=== PATIENT | male | born 1950 | race African-American/Black ===

== ENCOUNTER 2021-01-06 07:42 | Observation (INO) ==
[2021-01-06 08:39] LABS: Basophils % 0.8 % (0.0-0.8); Eosinophils # 0.2 10*3/uL (0.0-0.87); Eosinophils % 2.9 % (0.00-10.9); Hematocrit 39.6 VOL% (42.0-52.0); Hemoglobin 13.1 GM/DL (14.0-18.0); Immature Granulocytes % 0.2 %; Immature Granulocytes Absolute 0.01 #; Lymphocytes # 2.7 10*3/uL (1.4-4.0); Lymphocytes % 52.4 % (21.2-54.2); Mean Corpuscular HGB Conc 33.1 GM/DL (32-36); Mean Corpuscular Volume 89.6 FL (87-102); Mean Platelet Volume 11.3 FL (9.6-12.0); Monocytes % 9.4 % (1.7-12.7); Neutrophils % 34.3 % (38.7-73.9); Platelet Count 204 T/CUMM (130-400); Red Blood Count 4.42 MC/CUMM (3.8-5.5); Red Cell Distribution Width 12.6 % (9.3-17.3); White Blood Count 5.2 T/CUMM (4-12)
[2021-01-06 08:42] LABS: ABG Base Excess 3.9 MMOL/L (-2.5-2.5); ABG HCO3 27.8 MMOL/L (20-26); ABG Oxygen Saturation 96.8 % (95-100); ABG PCO2 35.4 MM HG (35-48); ABG PO2 80.3 MM HG (80-95); ABG TCO2 23.5 MMOL/L (23-27); Allen Test Positive; Pt O2 Delivery Device Room Air
[2021-01-06 08:46] LABS: Bilirubin,Urine Negative (Negative); Blood, Urine Negative (Negative); Glucose,Urine (UA) Negative (Negative); Ketones,Urine Negative (Negative); Nitrite,Urine Negative (Negative); Protein,Urine Negative; RBC,Urine <1 /HPF (0-4); Urine Appearance CLEAR (Clear); Urine Color Straw (Yellow); Urine Specific Gravity 1.008 (1.001-1.035); Urine Urobilinogen < 2.0 EU/DL (0.2-1.0)
[2021-01-06 09:04] LABS: Alanine Aminotransferase 12 U/L (16-61); Albumin 3.4 G/DL (3.4-5.0); Alkaline Phosphatase 72 U/L (45-117); Aspartate Amino Transferase 13 U/L (0-37); Bilirubin,Total < 0.39 MG/DL (0.20-1.00); Blood Urea Nitrogen 12 MG/DL (7-18); Carbon Dioxide 27 MMOL/L (21-32); Estimated Glom Filtration Rate 59 ML/MIN; Glucose 111 MG/DL (74-106); Osmolality,Calculated 288.7 MOS/KG (273-304); Potassium 3.4 MMOL/L (3.5-5.1); Sodium 145 MMOL/L (136-145); Total Protein 7.2 G/DL (6.4-8.2)
[2021-01-06 09:10] LABS: Eosinophils 4 % (0-10); Hypochromasia Slight; Lymphocytes 53 % (20-55); Microcytosis Slight; Platelet Estimate Adequate; Segmented Neutrophils 31 % (50-85); Total Cells Counted 100
[2021-01-06 09:12] LABS: Atypical Lymphocytes Few
[2021-01-06] MEDS ORDERED: ACETAMINOPHEN 325 MG TABLET PO PRN (10:23)
[2021-01-06] MEDS ORDERED: ALUMINUM/MAGNES/SIMETH MAX STR 30 ML UDCUP PO PRN (10:23)
[2021-01-06] MEDS ORDERED: hydrALAZINE 20 MG/1 ML VIAL IV PRN (10:23)
[2021-01-06] MEDS ORDERED: DEXTROSE 50% 25 GM/50 ML SYRINGE IV PRN (10:23)
[2021-01-06] MEDS ORDERED: GLUCAGON 1 MG VIAL IM PRN (10:23)
[2021-01-06] MEDS ORDERED: ONDANSETRON 4 MG/2 ML VIAL IV PRN (10:23)
[2021-01-06] MEDS ORDERED: DOCUSATE SODIUM 100 MG CAPSULE PO PRN (10:23)
[2021-01-06] MEDS ORDERED: hydrALAZINE 20 MG/1 ML VIAL IV STA (10:34)
[2021-01-06] MEDS ORDERED: POTASSIUM CHLORIDE 20 MEQ TABLET PO ONE (10:55)
[2021-01-06] MEDS: ENOXAPARIN 40 MG/0.4 ML SYRINGE SUBCUT SCH (10:57)
[2021-01-06 12:03] LABS: Thyroid Stimulating Hormone 4.71 uIU/ml (0.358-3.74)
[2021-01-06] MEDS: hydroCHLOROthiazide 25 MG TABLET PO SCH (17:16)
[2021-01-06] MEDS: amLODIPine 10 MG TABLET PO SCH (17:16)
[2021-01-07 05:12] LABS: Basophils % 0.7 % (0.0-0.8); Eosinophils # 0.1 10*3/uL (0.0-0.87); Eosinophils % 2.3 % (0.00-10.9); Hematocrit 38.7 VOL% (42.0-52.0); Hemoglobin 12.6 GM/DL (14.0-18.0); Immature Granulocytes % 0.4 %; Immature Granulocytes Absolute 0.02 #; Lymphocytes # 2.6 10*3/uL (1.4-4.0); Lymphocytes % 46.1 % (21.2-54.2); Mean Corpuscular HGB Conc 32.6 GM/DL (32-36); Mean Platelet Volume 11.4 FL (9.6-12.0); Neutrophils % 36.5 % (38.7-73.9); Platelet Count 203 T/CUMM (130-400); Red Cell Distribution Width 12.7 % (9.3-17.3); White Blood Count 5.7 T/CUMM (4-12)
[2021-01-07 05:35] LABS: Alanine Aminotransferase 10 U/L (16-61); Alkaline Phosphatase 61 U/L (45-117); Aspartate Amino Transferase 10 U/L (0-37); Bilirubin,Total < 0.39 MG/DL (0.20-1.00); Blood Urea Nitrogen 14 MG/DL (7-18); Calcium 8.8 MG/DL (8.5-10.1); Carbon Dioxide 25 MMOL/L (21-32); Estimated Glom Filtration Rate 74 ML/MIN; Glucose 91 MG/DL (74-106); HDL Cholesterol 28 MG/DL (40-60); Potassium 3.3 MMOL/L (3.5-5.1); Risk Ratio 5.89; Sodium 143 MMOL/L (136-145); Total Protein 6.5 G/DL (6.4-8.2); Triglycerides 102 MG/DL (2-150); VLDL Cholesterol 20.4 MG/DL
[2021-01-07 05:39] LABS: Eosinophils 1 % (0-10); Lymphocytes 53 % (20-55); Segmented Neutrophils 38 % (50-85); Total Cells Counted 100
[2021-01-07 05:40] LABS: Atypical Lymphocytes Moderate; Platelet Estimate Adequate
[2021-01-07] MEDS ORDERED: PANTOPRAZOLE 40 MG TABLET PO SCH (09:00)
[2021-01-07] MEDS: amLODIPine 10 MG TABLET PO SCH (09:18)
[2021-01-07] MEDS: hydroCHLOROthiazide 25 MG TABLET PO SCH (09:18)
[2021-01-07] MEDS ORDERED: POTASSIUM CHLORIDE 20 MEQ TABLET PO ONE (09:26)
[2021-01-07] MEDS: ENOXAPARIN 40 MG/0.4 ML SYRINGE SUBCUT SCH (09:52)
[2021-01-07 11:43] VITALS: BP 151/73
== END 2021-01-07 15:43 | disposition home or self-care (01) ==
LOC: N.ED 07:42 → N.EDINP 10:23 → INTOOBSV 10:23 → SUATTDRO 10:23 → N.EDINP 15:45 → N.TELEN 15:54
PROVIDERS: ADMIT Internal Medicine; ATTEND Emergency Medicine

== ENCOUNTER 2021-04-06 15:07 | Observation (INO) ==
[2021-04-06 16:58] LABS: Basophils % 0.4 % (0.0-0.8); Eosinophils % 0.2 % (0.00-10.9); Hematocrit 39.1 VOL% (42.0-52.0); Hemoglobin 13.7 GM/DL (14.0-18.0); Immature Granulocytes % 0.3 %; Immature Granulocytes Absolute 0.03 #; Lymphocytes # 2.2 10*3/uL (1.4-4.0); Lymphocytes % 23.2 % (21.2-54.2); Mean Corpuscular Volume 85.9 FL (87-102); Mean Platelet Volume 9.6 FL (9.6-12.0); Monocytes % 7.3 % (1.7-12.7); Neutrophils % 68.6 % (38.7-73.9); Platelet Count 335 T/CUMM (130-400); Red Blood Count 4.55 MC/CUMM (3.8-5.5); Red Cell Distribution Width 13.2 % (9.3-17.3); White Blood Count 9.4 T/CUMM (4-12)
[2021-04-06 17:29] LABS: Albumin 3.8 G/DL (3.4-5.0); Bilirubin,Total 0.5 MG/DL (0.20-1.00); Calcium 9.7 MG/DL (8.5-10.1); Osmolality,Calculated 276.7 MOS/KG (273-304); Potassium 2.8 MMOL/L (3.5-5.1); Total Protein 8.1 G/DL (6.4-8.2)
[2021-04-06] MEDS ORDERED: POTASSIUM CHLORIDE 20 MEQ TABLET PO STA (17:34)
[2021-04-06] MEDS ORDERED: SODIUM CHLORIDE 0.9% 1,000 ML IV STA (17:34)
[2021-04-06] MEDS ORDERED: diphenhydrAMINE CAP 25 MG CAPSULE PO PRN (18:06)
[2021-04-06] MEDS ORDERED: ONDANSETRON 4 MG/2 ML VIAL IV PRN (18:06)
[2021-04-06] MEDS ORDERED: ACETAMINOPHEN 325 MG TABLET PO PRN (18:06)
[2021-04-06] MEDS ORDERED: ZALEPLON 5 MG CAPSULE PO PRN (18:06)
[2021-04-06] MEDS ORDERED: BISACODYL 5 MG TABLET PO PRN (18:06)
[2021-04-06] MEDS ORDERED: guaiFENesin/DM ER 600-30 MG TABLET PO PRN (18:06)
[2021-04-06] MEDS ORDERED: GLUCAGON 1 MG VIAL IM PRN (18:06)
[2021-04-06] MEDS ORDERED: ALBUTEROL/IPRATROPIUM 3 ML NEB RESP TX PRN (18:06)
[2021-04-06] MEDS ORDERED: NICOTINE 21 MG/24 HR PATCH TRANSDERM PRN (18:06)
[2021-04-06] MEDS ORDERED: hydrALAZINE 20 MG/1 ML VIAL IV PRN (18:06)
[2021-04-06] MEDS ORDERED: DEXTROSE 10% 250 ML BAG IV PRN (18:20)
[2021-04-06] MEDS: carvediloL 3.125 MG TABLET PO SCH (22:24)
[2021-04-06] MEDS: HEPARIN 5,000 UNIT/1 ML VIAL SUBCUT SCH (22:28)
[2021-04-07 05:37] LABS: Basophils % 0.4 % (0.0-0.8); Eosinophils # 0.1 10*3/uL (0.0-0.87); Eosinophils % 1.4 % (0.00-10.9); Hematocrit 36.6 VOL% (42.0-52.0); Hemoglobin 12.3 GM/DL (14.0-18.0); Immature Granulocytes % 0.1 %; Immature Granulocytes Absolute 0.01 #; Lymphocytes # 3.2 10*3/uL (1.4-4.0); Lymphocytes % 42.6 % (21.2-54.2); Mean Corpuscular HGB Conc 33.6 GM/DL (32-36); Mean Corpuscular Volume 87.4 FL (87-102); Mean Platelet Volume 9.8 FL (9.6-12.0); Monocytes % 8.9 % (1.7-12.7); Neutrophils % 46.6 % (38.7-73.9); Platelet Count 308 T/CUMM (130-400); Red Blood Count 4.19 MC/CUMM (3.8-5.5); Red Cell Distribution Width 13.3 % (9.3-17.3); White Blood Count 7.6 T/CUMM (4-12)
[2021-04-07 05:57] LABS: Calcium 9.1 MG/DL (8.5-10.1); Osmolality,Calculated 283.1 MOS/KG (273-304); Potassium 3.1 MMOL/L (3.5-5.1)
[2021-04-07] MEDS ORDERED: POTASSIUM CHLORIDE 20 MEQ TABLET PO SCH (08:00)
[2021-04-07] MEDS ORDERED: amLODIPine 10 MG TABLET PO SCH (09:00)
[2021-04-07] MEDS ORDERED: PANTOPRAZOLE 40 MG TABLET PO SCH (09:00)
[2021-04-07] MEDS: carvediloL 3.125 MG TABLET PO SCH (09:03)
[2021-04-07] MEDS: HEPARIN 5,000 UNIT/1 ML VIAL SUBCUT SCH (09:03)
[2021-04-07 11:45] LABS: Alcohol Patient Result Negative (Negative); Barbiturates Screen,Urine Negative (Negative); Benzodiazepines Screen,Urine Negative (Negative); Cannabinoid Screen,Urine Negative (Negative); Opiate Screen,Urine Negative (Negative); Phencyclidine Screen,Urine Negative (Negative)
[2021-04-07 15:58] VITALS: BP 171/85
== END 2021-04-07 16:26 | disposition home or self-care (01) ==
LOC: N.EDINP 15:07 → N.ED 15:07 → N.EDINP 20:06 → N.3E 20:41
PROVIDERS: ADMIT Internal Medicine; ATTEND Internal Medicine